=== PATIENT | male | born 1960 | race Caucasian/White ===

== ENCOUNTER 2016-08-16 01:11 | Emergency (ER) | payer MEDICARE ==
[~2016-08-16] VITALS: Ht 177.8 cm; Wt 77.1 kg
[2016-08-16] MEDS ORDERED: ZOFRAN ODT4 MG PO (03:30)
== END 2016-08-16 04:12 | disposition home or self-care (01) ==
LOC: ED 01:11
DX: R42 Dizziness and giddiness (principal); T40.4X5A Adverse effect of other synthetic narcotics, initial encounter; F32.9 Major depressive disorder, single episode, unspecified; Z88.8 Allergy status to other drugs, medicaments and biological substances
CPT/HCPCS: 80053; 85025; 96361; 96374; 96375; 99283; J2310; J2405; J7030